=== PATIENT | female | born 1975 | race Two or more races ===

== ENCOUNTER 2018-12-14 07:57 | Outpatient (CLI) | payer OTHER | END 2018-12-14 08:00 | disposition home or self-care (01) | LOC: LAB 07:57 | DX: N95.1 Menopausal and female climacteric states (principal); E28.39 Other primary ovarian failure; E04.1 Nontoxic single thyroid nodule; E55.9 Vitamin D deficiency, unspecified; E78.00 Pure hypercholesterolemia, unspecified ==

== ENCOUNTER 2018-12-14 08:39 | Outpatient (CLI) | payer OTHER | END 2018-12-14 08:41 | disposition home or self-care (01) | LOC: MAMO-SONO 08:39 | DX: Z12.31 Encounter for screening mammogram for malignant neoplasm of breast (principal); Z87.898 Personal history of other specified conditions; D25.9 Leiomyoma of uterus, unspecified; N60.09 Solitary cyst of unspecified breast ==

== ENCOUNTER 2022-06-30 11:13 | Outpatient (CLI) | payer OTHER | END 2022-06-30 11:25 | disposition home or self-care (01) | LOC: RAD 11:13 | PROVIDERS: ATTEND General Practice | DX: I11.9 Hypertensive heart disease without heart failure (principal); N64.4 Mastodynia ==